=== PATIENT | female | born 1985 | race Caucasian/White ===

== ENCOUNTER 2018-07-28 22:00 | Inpatient (IN) | payer BC ==
[~2018-07-28] VITALS: Ht 165.1 cm; Wt 83.0 kg
[~2018-07-28 22:00] MED LIST: BUPIVACAINE /DEX PF 0.75% SPINAL 2 ML AMP INJ ONE; KETOROLAC TROMETHAMINE 30 MG VIAL IVP ONE; LR 1,000 ML IV.SOLN IV ONE; MIDAZOLAM HCL 5 MG/5 ML VIAL IVP ONE; MORPHINE SULFATE 10MG/10ML PF AMP EP ONE; PROPOFOL 200MG/ 20ML VIAL (DIPRIVAN) IV ONE
[2018-07-28] MEDS ORDERED: LR 500 ML IV ONE (22:47)
[2018-07-28] MEDS: LR 1,000 ML IV SCH (22:47)
[2018-07-28] MEDS ORDERED: TERBUTALINE SULFATE 1 MG/ML VIAL SUBCUT ONE (23:00)
[2018-07-28 23:28] LABS: HEMATOCRIT 33.9 % (36-48); HEMOGLOBIN 11.4 g/dL (12.0-16.0); MEAN CORPUSCULAR HEMOGLOBIN 27 pg (27-31); MEAN CORPUSCULAR HGB CONC 34 % (32-36); MEAN CORPUSCULAR VOLUME 81 fL (79.0-98.0); RED BLOOD CELL COUNT(AUTO) 4.18 MIL/uL (4.2-6.2); RED CELL DISTRIBUTION WIDTH 14.7 % (9.0-15.0); WHITE BLOOD COUNT (AUTO) 10.7 K/uL (4.8-10.8)
[2018-07-28 23:29] LABS: BASOPHILS % (AUTO) 0.3 % (0.0-2.0); EOSINOPHILS # (AUTO) 0.2 K/uL (0.0-0.4); EOSINOPHILS % (AUTO) 2.2 % (0.0-4.0); LYMPHOCYTES % (AUTO) 19.1 % (20.5-51.5); MONOCYTES # (AUTO) 0.9 K/uL (0.0-1.0); MONOCYTES % (AUTO) 8.9 % (1.7-9.3); NEUTROPHILS # (AUTO) 7.4 K/uL (1.8-7.7); NEUTROPHILS % (AUTO) 69.5 % (40.0-70.0); PLATELET COUNT (AUTO) 266 K/uL (130-430)
[2018-07-29] MEDS ORDERED: ROPIVACAINE 0.2% 100 ML ONE ×3 (00:13→13:38)
[2018-07-29] MEDS ORDERED: fentaNYL CITRATE/PF 100 MCG/2 ML AMP ONE ×3 (00:13→19:54)
[2018-07-29] MEDS ORDERED: LR 500 ML IV ONE (00:49)
[2018-07-29] MEDS ORDERED: FENT2mCg/mL-ROPIVA0.2%/NS EPID 150 ML EP SCH (01:00)
[2018-07-29 01:45] VITALS: BP_SYST 136
[2018-07-29] MEDS: LR 1,000 ML IV SCH ×2 (02:36→11:42)
[2018-07-29] MEDS: OXYTOCIN/0.9 % SODIUM CHLORIDE 1,000 ML IV SCH (06:19)
[2018-07-29] MEDS ORDERED: AMPICILLIN SODIUM 2 GM in NS 100 ML IV ONE (08:00)
[2018-07-29] MEDS: AMPICILLIN SODIUM 1 GM in NS 50 ML IV SCH ×2 (12:06→16:16)
[2018-07-29] MEDS ORDERED: NALBUPHINE HCL 10 MG/ML AMP ONE (17:04)
[2018-07-29] MEDS ORDERED: LR 1,000 ML IV ONE (17:13)
[2018-07-29] MEDS ORDERED: CEFAZOLIN 2 GM IVPB PREMIX 50 ML IV ONE (17:15)
[2018-07-29 17:25] LABS: BILIRUBIN,URINE NEGATIVE (NEGATIVE); BLOOD, URINE 3+ (NEGATIVE); GLUCOSE,URINE NEGATIVE (NEGATIVE); KETONES,URINE 3+ (NEGATIVE); LEUKOCYTE ESTERASE ,URINE NEGATIVE (NEGATIVE); NITRITE, URINE NEGATIVE (NEGATIVE); PROTEIN URINE 1+ (NEGATIVE); UROBILINOGEN,URINE 0.2 (0.2-1.0)
[2018-07-29] MEDS ORDERED: NALBUPHINE HCL 10 MG/ML AMP IVP PRN ×2 (17:30→19:00)
[2018-07-29 17:32] LABS: BACTERIA,URINE FEW /HPF (None Seen); CLARITY/URINE SLIGHTLY CLOUDY (CLEAR); COLOR,URINE RED (YELLOW); RBC,URINE >100 /HPF (0-3); WBC,URINE 0-3 /HPF (0-3)
[2018-07-29] MEDS ORDERED: ONDANSETRON HCL 4 MG/2 ML VIAL IVP PRN (19:00)
[2018-07-29] MEDS ORDERED: DIPHENHYDRAMINE INJ 50 MG/ML VIAL IVP PRN (19:00)
[2018-07-29] MEDS ORDERED: NALOXONE HCL 0.4 MG/ML AMP (NARCAN) IVP PRN ×2 (19:00)
[2018-07-29] MEDS ORDERED: MORPHINE SULFATE 10MG/10ML PF AMP EP SCH (19:00)
[2018-07-29] MEDS ORDERED: KETOROLAC TROMETHAMINE 60 MG/2 ML VIAL IM PRN (19:00)
[2018-07-29] MEDS ORDERED: fentaNYL CITRATE/PF 100 MCG/2 ML AMP IVP PRN ×2 (19:00)
[2018-07-29 19:30] VITALS: BP_SYST 121
[2018-07-29] MEDS ORDERED: OXYTOCIN/0.9 % SODIUM CHLORIDE 1,000 ML IV ONE (19:31)
[2018-07-29] MEDS ORDERED: LR 1,000 ML IV SCH (19:31)
[2018-07-29] MEDS ORDERED: RHO(D) IMMUNE GLOBULIN/MALTOSE 1500 UNITS/1.3 ML (WINHRO) IM PRN (19:45)
[2018-07-29] MEDS ORDERED: SENNOSIDES/DOCUSATE SODIUM 1 TAB TABLET(SENOKOT-S) PO PRN (19:45)
[2018-07-29] MEDS ORDERED: BISACODYL 10 MG/SUPPOSITORY RC PRN (19:45)
[2018-07-29] MEDS ORDERED: DIPH-TET-PERTUS Vaccine 0.5 ML VIAL (ADACEL) I.M. PRN (19:45)
[2018-07-29] MEDS ORDERED: ANUSOL 1 EA SUPP.RECT (PREPARATION H) RC PRN (19:45)
[2018-07-29] MEDS ORDERED: oxyCODONE HCL 5 MG TABLET PO PRN ×2 (19:45)
[2018-07-29] MEDS ORDERED: LANOLIN 7 GM OINT. TP PRN (19:45)
[2018-07-29] MEDS ORDERED: TEMAZEPAM 15 MG CAPSULE PO PRN (21:00)
[2018-07-29] MEDS: CEFAZOLIN 1 GM IVPB PREMIX 50 ML IV SCH (23:57)
[2018-07-30] MEDS: CEFAZOLIN 1 GM IVPB PREMIX 50 ML IV SCH ×2 (06:07→11:54)
[2018-07-30] MEDS: KETOROLAC TROMETHAMINE 30 MG VIAL IVP SCH ×3 (06:08→17:49)
[2018-07-30] MEDS: OXYTOCIN/0.9 % SODIUM CHLORIDE 1,000 ML IV SCH (06:10)
[2018-07-30] MEDS ORDERED: BUPIVACAINE /PF 0.5% 30 ML VIAL EP ONE (11:32)
[2018-07-30 11:43] LABS: HEMATOCRIT 28.9 % (36-48); HEMOGLOBIN 9.5 g/dL (12.0-16.0); MEAN CORPUSCULAR HEMOGLOBIN 27 pg (27-31); MEAN CORPUSCULAR HGB CONC 33 % (32-36); MEAN CORPUSCULAR VOLUME 82 fL (79.0-98.0); NEUTROPHILS % (AUTO) 80.8 % (40.0-70.0); PLATELET COUNT (AUTO) 242 K/uL (130-430); RED BLOOD CELL COUNT(AUTO) 3.52 MIL/uL (4.2-6.2); RED CELL DISTRIBUTION WIDTH 14.6 % (9.0-15.0); WHITE BLOOD COUNT (AUTO) 13.2 K/uL (4.8-10.8)
[2018-07-30 11:44] LABS: BASOPHILS % (AUTO) 0.2 % (0.0-2.0); EOSINOPHILS # (AUTO) 0.1 K/uL (0.0-0.4); EOSINOPHILS % (AUTO) 0.8 % (0.0-4.0); LYMPHOCYTES # (AUTO) 1.4 K/uL (1.0-5.5); LYMPHOCYTES % (AUTO) 10.8 % (20.5-51.5); MONOCYTES % (AUTO) 7.4 % (1.7-9.3); NEUTROPHILS # (AUTO) 10.6 K/uL (1.8-7.7)
[2018-07-30] MEDS: SIMETHICONE 80 MG TAB.CHEW PO PRN ×2 (11:54→15:56)
[2018-07-30] MEDS: DOCUSATE SODIUM 100 MG CAPSULE PO PRN (11:54)
[2018-07-30] MEDS: oxyCODONE HCL 5 MG TABLET PO PRN (15:56)
[2018-07-30] MEDS: IBUPROFEN 600 MG TABLET PO SCH (23:00)
[2018-07-31] MEDS: DOCUSATE SODIUM 100 MG CAPSULE PO PRN ×2 (01:49→12:07)
[2018-07-31] MEDS: SIMETHICONE 80 MG TAB.CHEW PO PRN ×2 (01:49→12:09)
[2018-07-31] MEDS: IBUPROFEN 600 MG TABLET PO SCH ×2 (05:55→12:07)
[2018-07-31] MEDS: oxyCODONE HCL 5 MG TABLET PO PRN (12:07)
[2018-07-31] MEDS ORDERED: MEASLES,MUMPS&RUBELLA VACC/PF 12500 UNIT/0.5 ML VIAL SUBQ ONE (12:30)
== END 2018-07-31 13:10 | disposition home or self-care (01) | DRG 788 ==
LOC: SPU 22:00
PROVIDERS: ADMIT Specialist; ATTEND Specialist
PROC: 10D00Z1 Extraction of Products of Conception, Low, Open Approach (ICD-10-PCS; principal; 2018-07-28)
DX: O33.9 Maternal care for disproportion, unspecified (principal); O42.92 Full-term premature rupture of membranes, unspecified as to length of time between rupture and onset of labor; O62.2 Other uterine inertia; Z37.0 Single live birth; Z3A.39 39 weeks gestation of pregnancy; Z88.8 Allergy status to other drugs, medicaments and biological substances
CPT/HCPCS: 36415; 81000-TC; 81002-TC; 85025; 86592; 86886; 86900; 86901; 94760; J0290; J0690; J1885; J2250; J2274; J2300; J2590; J2704; J2795; J3010; J3490; J7120

== ENCOUNTER 2020-10-04 05:00 | Inpatient (IN) | payer BC, SELFPAY ==
[2020-10-03 08:59] LABS: BASOPHILS # (AUTO) 0.2 K/uL (0.0-0.2); BASOPHILS % (AUTO) 1.9 % (0.0-2.0); EOSINOPHILS # (AUTO) 0.1 K/uL (0.0-0.4); EOSINOPHILS % (AUTO) 1.1 % (0.0-4.0); HEMATOCRIT 37.7 % (36-48); HEMOGLOBIN 12.4 g/dL (12.0-16.0); LYMPHOCYTES # (AUTO) 1.6 K/uL (1.0-5.5); LYMPHOCYTES % (AUTO) 17.7 % (20.5-51.5); MEAN CORPUSCULAR HEMOGLOBIN 28 pg (27-31); MEAN CORPUSCULAR HGB CONC 33 % (32-36); MEAN CORPUSCULAR VOLUME 86 fL (79.0-98.0); MONOCYTES # (AUTO) 0.6 K/uL (0.0-1.0); MONOCYTES % (AUTO) 6.2 % (1.7-9.3); NEUTROPHILS # (AUTO) 6.5 K/uL (1.8-7.7); NEUTROPHILS % (AUTO) 73.1 % (40.0-70.0); PLATELET COUNT (AUTO) 199 K/uL (130-430); RED BLOOD CELL COUNT(AUTO) 4.38 MIL/uL (4.2-6.2); RED CELL DISTRIBUTION WIDTH 14.9 % (9.0-15.0); WHITE BLOOD COUNT (AUTO) 8.8 K/uL (4.8-10.8)
[2020-10-03 09:10] LABS: BILIRUBIN,URINE NEGATIVE (NEGATIVE); BLOOD, URINE NEGATIVE (NEGATIVE); CLARITY/URINE CLEAR (CLEAR); COLOR,URINE YELLOW (YELLOW); GLUCOSE,URINE NEGATIVE (NEGATIVE); KETONES,URINE NEGATIVE (NEGATIVE); LEUKOCYTE ESTERASE ,URINE 2+ (NEGATIVE); NITRITE, URINE NEGATIVE (NEGATIVE); PH,URINE 6.5 (5.0-8.0); PROTEIN URINE 1+ (NEGATIVE); UROBILINOGEN,URINE 0.2 (0.2-1.0)
[2020-10-03 09:36] LABS: BACTERIA,URINE MODERATE /HPF (None Seen); MUCUS,URINE 1+ /LPF (None Seen); WBC,URINE 50-80 /HPF (0-3)
[~2020-10-04] VITALS: Ht 165.1 cm; Wt 82.6 kg
[2020-10-04] MEDS ORDERED: LR 1,000 ML IV SCH ×2 (05:15→08:45)
[2020-10-04] MEDS ORDERED: LR 1,000 ML IV ONE (05:15)
[2020-10-04] MEDS ORDERED: CEFAZOLIN 2 GM IVPB PREMIX 50 ML IV ONE (05:15)
[2020-10-04 06:23] VITALS: BP_SYST 124
[2020-10-04] MEDS ORDERED: OXYTOCIN 10 UNIT/ML VIAL IV ONE (07:40)
[2020-10-04] MEDS ORDERED: MORPHINE SULFATE 10MG/10ML PF AMP EP ONE (07:40)
[2020-10-04] MEDS ORDERED: BUPIVACAINE /DEX PF 0.75% SPINAL 2 ML AMP INJ ONE (07:40)
[2020-10-04] MEDS ORDERED: ONDANSETRON HCL 4 MG/2 ML VIAL IVP ONE (07:40)
[2020-10-04] MEDS ORDERED: ePHEDrine sulfate 50 MG/ML VIAL IVP ONE (07:40)
[2020-10-04] MEDS ORDERED: METOCLOPRAMIDE HCL 10 MG/2 ML VIAL IVP ONE (07:40)
[2020-10-04] MEDS ORDERED: LR 1,000 ML IV.SOLN IV ONE (07:40)
[2020-10-04] MEDS ORDERED: ONDANSETRON HCL 4 MG/2 ML VIAL IVP PRN (08:30)
[2020-10-04] MEDS ORDERED: MORPHINE SULFATE 10MG/10ML PF AMP SP SCH (08:30)
[2020-10-04] MEDS ORDERED: KETOROLAC TROMETHAMINE 60 MG/2 ML VIAL IM PRN (08:30)
[2020-10-04] MEDS ORDERED: NALOXONE HCL 0.4 MG/ML AMP (NARCAN) IVP PRN ×2 (08:30→08:45)
[2020-10-04] MEDS ORDERED: DIPHENHYDRAMINE INJ 50 MG/ML VIAL IM PRN (08:30)
[2020-10-04 08:38] VITALS: BP_SYST 114
[2020-10-04] MEDS ORDERED: HYDROcodone/ACETAMIN 5-325 MG TAB (NORCO/ VICODIN) PO PRN (08:45)
[2020-10-04] MEDS ORDERED: RHO(D) IMMUNE GLOBULIN/MALTOSE 1500 UNITS/1.3 ML (WINHRO) IM PRN (08:45)
[2020-10-04] MEDS ORDERED: oxyCODONE HCL 5 MG TABLET PO PRN ×2 (08:45)
[2020-10-04] MEDS ORDERED: DIPH-TET-PERTUS Vaccine 0.5 ML VIAL (ADACEL) I.M. PRN (08:45)
[2020-10-04] MEDS ORDERED: MEASLES,MUMPS&RUBELLA VACC/PF 12500 UNIT/0.5 ML VIAL SUBQ PRN (08:45)
[2020-10-04] MEDS ORDERED: TEMAZEPAM 15 MG CAPSULE PO PRN (08:45)
[2020-10-04] MEDS ORDERED: ANUSOL 1 EA SUPP.RECT (PREPARATION H) RC PRN (08:45)
[2020-10-04] MEDS ORDERED: LANOLIN 7 GM OINT. TP PRN (08:45)
[2020-10-04] MEDS ORDERED: BISACODYL 10 MG/SUPPOSITORY RC PRN (08:45)
[2020-10-04] MEDS ORDERED: DOCUSATE SODIUM 100 MG CAPSULE PO ONE (09:00)
[2020-10-04] MEDS: CEFAZOLIN 1 GM IVPB PREMIX 50 ML IV SCH ×2 (12:24→18:08)
[2020-10-04] MEDS: OXYTOCIN/0.9 % SODIUM CHLORIDE 1,000 ML IV SCH ×2 (15:05→22:35)
[2020-10-04] MEDS: KETOROLAC TROMETHAMINE 30 MG VIAL IVP SCH ×2 (18:05→23:59)
[2020-10-04] MEDS ORDERED: SENNOSIDES/DOCUSATE SODIUM 1 TAB TABLET(SENOKOT-S) PO SCH (21:00)
[2020-10-04] MEDS ORDERED: DOCUSATE SODIUM 100 MG CAPSULE PO SCH (21:00)
[2020-10-05] MEDS: CEFAZOLIN 1 GM IVPB PREMIX 50 ML IV SCH
[2020-10-05] MEDS: KETOROLAC TROMETHAMINE 30 MG VIAL IVP SCH ×2 (05:56→12:14)
[2020-10-05] MEDS: OXYTOCIN/0.9 % SODIUM CHLORIDE 1,000 ML IV SCH (06:45)
[2020-10-05 06:52] LABS: BASOPHILS % (AUTO) 0.4 % (0.0-2.0); EOSINOPHILS # (AUTO) 0.1 K/uL (0.0-0.4); HEMATOCRIT 29.7 % (36-48); LYMPHOCYTES # (AUTO) 1.3 K/uL (1.0-5.5); MEAN CORPUSCULAR HEMOGLOBIN 29 pg (27-31); MEAN CORPUSCULAR HGB CONC 34 % (32-36); MEAN CORPUSCULAR VOLUME 87 fL (79.0-98.0); MONOCYTES # (AUTO) 0.6 K/uL (0.0-1.0); MONOCYTES % (AUTO) 6.1 % (1.7-9.3); NEUTROPHILS # (AUTO) 7.5 K/uL (1.8-7.7); NEUTROPHILS % (AUTO) 78.5 % (40.0-70.0); PLATELET COUNT (AUTO) 202 K/uL (130-430); RED BLOOD CELL COUNT(AUTO) 3.42 MIL/uL (4.2-6.2); RED CELL DISTRIBUTION WIDTH 15.3 % (9.0-15.0); WHITE BLOOD COUNT (AUTO) 9.5 K/uL (4.8-10.8)
[2020-10-05] MEDS: SIMETHICONE 80 MG TAB.CHEW PO PRN ×2 (09:02→12:13)
[2020-10-05] MEDS ORDERED: IBUPROFEN 600 MG TABLET PO SCH (12:00)
== END 2020-10-05 17:00 | disposition home or self-care (01) | DRG 788 ==
LOC: SPU 05:00
PROVIDERS: ADMIT Specialist; ATTEND Specialist
PROC: 10D00Z1 Extraction of Products of Conception, Low, Open Approach (ICD-10-PCS; principal; 2020-10-04 07:00)
DX: O34.211 Maternal care for low transverse scar from previous cesarean delivery (principal); Z20.822 Contact with and (suspected) exposure to COVID-19; Z37.0 Single live birth; Z3A.39 39 weeks gestation of pregnancy
CPT/HCPCS: 36415; 81000; 85025; 86886; 86900; 86901; 94760; J0690; J1885; J2274; J2405; J2590; J2765; J3490; J7120; U0003